=== PATIENT | male | born 1980 | race Caucasian/White ===

== ENCOUNTER 2018-04-23 12:46 | Emergency (ER) | payer SELFPAY ==
[2018-04-23 12:59] VITALS: BP 123/85
--- NOTE | 2018-04-23 13:04 | UC ---
Abdominal Pain Male HPI - HPI Summary HPI Summary: pt c/o some swelling in his belly button with episodic soreness over the past week. today, he lifted a 5 gallon bucket of water and got instant sever- constant pain with sweating, nausea and diarrhea plus more swelling. denies any testicular pain or swelling. - History of Current Complaint Chief Complaint: UCAbdominalPain Stated Complaint: ABDOMINAL PAIN Time Seen by Provider: 04/23/18 12:55 Hx Obtained From: Patient, Family/[employer]anting [employer] Pain Intensity: 8 Aggravating Factor(s): Movement Alleviating Factor(s): Nothing Associated Signs And Symptoms: Positive: Diaphoresis, Nausea, Diarrhea - Allergies/Home Medications Allergies/Adverse Reactions: Allergies Allergy/AdvReac Type Severity Reaction Status Date / Time No Known Allergies Allergy Verified 04/23/18 12:54 Home Medications: Home Medications NK [No Home Medications Reported] 04/23/18 [History Confirmed 04/23/18] PMH/Surg Hx/FS Hx/Imm Hx Previously Healthy: Yes - Surgical History Surgical History: Yes Surgery Procedure, Year, and Place: Herniorrhaphy as an infant - Family History Known Family History: Positive: Unknown - Social History Lives: With Family Alcohol Use: Rare Substance Use Type: None Smoking Status (MU): Heavy Every Day Tobacco Smoker Type: Smokeless Tobacco Amount Used/How Often: 1/2 can a day Length of Time of Smoking/Using Tobacco: Since Age 17 - Immunization History Vaccination Up to Date: Yes Review of Systems Constitutional: Negative Skin: Negative Eyes: Negative ENT: Negative Respiratory: Negative Cardiovascular: Negative Gastrointestinal: Abdominal Pain, Diarrhea, Nausea Genitourinary: Negative Motor: Negative Neurovascular: Negative Musculoskeletal: Negative Neurological: Negative Psychological: Negative Is Patient Immunocompromised?: No All Other Systems Reviewed And Are Negative: Yes Physical Exam Triage Information Reviewed: Yes Appearance: Pain Distress - mild Vital Signs: Initial Vital Signs Temp 97.3 F 04/23/18 12:55 Pulse 92 04/23/18 12:55 Resp 18 04/23/18 12:55 BP 123/85 04/23/18 12:55 Pulse Ox 100 04/23/18 12:55 Vital Signs Reviewed: Yes Eyes: Positive: Conjunctiva Clear ENT: Positive: Normal ENT inspection Neck: Positive: Supple, Nontender, No Lymphadenopathy Respiratory: Positive: Lungs clear, Normal breath sounds Cardiovascular: Positive: RRR, No Murmur Abdomen Description: Positive: No Organomegaly, Other: - 4cm area of swelling R side of umbilcal area which is very tender and firm. Pt guards with palpation of site.. Negative: CVA Tenderness (R), CVA Tenderness (L), Distended Bowel Sounds: Positive: Present Musculoskeletal: Positive: ROM Intact Neurological: Positive: Alert Psychological: Positive: Age Appropriate Behavior Skin Exam: Normal Abd Pain Male Course/Dx - Course Course Of Treatment: [facility] CALLED. REPORT GIVEN TO WARREN DOLAN NP. ADVISED PT HAS AN INCARCERATED UMBILICAL HERNIA. PT DECLINED EMS, DRIVING HIM TO [facility] ER. - Differential Dx/Clinical Impression Provider Diagnoses: Incarcerated umbilical hernia Discharge - Sign-Out/Discharge Documenting (check all that apply): Patient Departure All imaging exams completed and their final reports reviewed: No Studies - Discharge Plan Condition: Stable Disposition: TRANS HIGHER LVL OF CARE FAC Additional Instructions: LEAVE HERE AND GO DIRECTLY TO THE [facility] [place] [facility] DISCUSSED. DO NOT EAT OR DRINK AFTER YOU LEAVE HERE. - Billing Disposition and Condition Condition: STABLE Disposition: Trans Higher Lvl of Care Fac
== END 2018-04-23 13:14 | disposition short-term general hospital (02) ==
LOC: EDBD → MERGE 12:46 → UCCORT 12:46
DX: K42.0 Umbilical hernia with obstruction, without gangrene (principal); F17.290 Nicotine dependence, other tobacco product, uncomplicated
CPT/HCPCS: 99202; G0463